=== PATIENT | female | born 1995 | race American Indian/Alaskan Native ===

== ENCOUNTER 2017-03-11 22:21 | Emergency (ER) | payer SELFPAY ==
[2017-03-11 22:54] VITALS: BP 146/95
--- NOTE | 2017-03-12 02:40 | Emergency Department Report ---
Minor Respiratory - HPI Chief Complaint: Upper Respiratory Infection Stated Complaint: FLU SYMPTOMS,BACK PAIN Time Seen by Provider: 03/12/17 01:49 Duration: Today Pain Location: Other (generalized body aches) Severity: moderate Minor Respiratory: Yes Rhinorrhea, Yes Sore Throat, Yes Able to Tolerate Fluids , Yes Cough, Yes Sick Contacts, Yes Fever, No Ear Pain, No Hemoptysis, No Chest Pain, No Shortness of Breath Other History: This is a 21 y.o. female presents with sore throat, cough, and body aches since this morning. Reports symptoms starting around 0600 today. She took aleve once with minimal improvement. Reports muclse aches didn't resolve and she can barely get out of bed. Denies chest pain, SOB, nausea, vomiting, wheezing, congestion, and rhinorrhea. ED Review of Systems ROS: Stated complaint: FLU SYMPTOMS,BACK PAIN Other details as noted in HPI Constitutional: see HPI, chills, fever, malaise. denies: diaphoresis, weakness ENT: denies: ear pain, throat pain, dental pain, hearing loss, epistaxis, congestion Respiratory: cough. denies: orthopnea, shortness of breath, SOB with exertion, SOB at rest, stridor, wheezing Cardiovascular: denies: chest pain, palpitations Gastrointestinal: denies: abdominal pain, nausea, diarrhea Musculoskeletal: myalgia (generalized body aches) Neurological: denies: headache, weakness, paresthesias ED Past Medical Hx - Past Medical History Hx Hypertension: Yes Hx Diabetes: Yes - Surgical History Additional Surgical History: chin, leg - Social History Smoking Status: Never Smoker Substance Use Type: Alcohol - Medications Home Medications: Home Medications Medication Instructions Recorded Confirmed Last Taken Type Benzonatate 200 mg PO TID PRN #30 capsule 03/12/17 Unknown Rx Fluticasone [Flonase] 1 spray NS QDAY #1 bottle 03/12/17 Unknown Rx Minor Respiratory Exam - Exam General: Vital signs noted. No distress. Alert and acting appropriately. HEENT: Yes Pharyngeal Erythema, Yes Moist Mucous Membranes, No Pharyngeal Exudates, No Rhinorrhea, No Conjuctival Injection, No Frontal Tenderness, No Maxillary Tenderness Ear: Neither TM Bulge, Neither TM Erythema, Neither EAC Pain, Neither EAC Discharge Neck: Yes Supple, No Adenopathy Lungs: Yes Good Air Exchange, Yes Cough, No Wheezes, No Ronchi, No Stridor, No Labored Respirations, No Retractions, No Use of Accessory Muscles, No Other Abnormal Lung Sounds Heart: Yes Regular, No Murmur Abdomen: Yes Normal Bowel Sounds, No Tenderness, No Peritoneal Signs Skin: No Rash, No Edema Neurologic: Alert and oriented, no deficits. Musculoskeletal: Unremarkable. ED Course Vital Signs 03/11/17 22:52 Temperature 99.1 F Pulse Rate 104 H Respiratory 18 Rate Blood Pressure 146/95 O2 Sat by Pulse 98 Oximetry ED Medical Decision Making - Medical Decision Making This is a 21 y.o. female presents with fever, cough, and body aches that started around 0600 today. She took advil and still feel pain everywhere and very lethargic. Negative influenza swab Discharged home with flonase, and benzonatate. Increase fluids, rest, and good hygiene. Follow up with PCP. Discussed when to return to ER. Critical care attestation.: If time is entered above; I have spent that time in minutes in the direct care of this critically ill patient, excluding procedure time. ED Disposition Clinical Impression: Viral syndrome URI (upper respiratory infection) Qualifiers: URI type: acute nasopharyngitis (common cold) Qualified Code(s): J00 - Acute nasopharyngitis [common cold] Disposition: - TO HOME OR SELFCARE Is pt being admited?: No Does the pt Need Aspirin: No Condition: Stable Instructions: Upper Respiratory Infection (ED), Viral Syndrome (ED), Cold Symptoms (ED) Additional Instructions: Increase fluid intake. Wash hands frequently to decrease the spread of infection. Take tylenol or ibuprofen to control fever. Follow up with Primary Care Provider if symptoms are not improving. Return to ER if chest pain, fever, abdominal pain, SOB, wheezing, or difficulty breathing. Prescriptions: Benzonatate 200 mg PO TID PRN #30 capsule PRN Reason: Pain Fluticasone [Flonase] 1 spray NS QDAY #1 bottle Referrals: [facility] [Outside] - 3-5 Days [facility] [Outside] - 3-5 Days [facility] [Outside] - 3-5 Days Time of Disposition: 03:16 Print Language: GREEK
[2017-03-12] MEDS ORDERED: TYLENOL ONE (03:29)
[2017-03-12] MEDS ORDERED: TYLENOL PO ONE (03:41)
== END 2017-03-12 03:43 | disposition home or self-care (01) ==
LOC: ED 22:21
DX: B34.9 Viral infection, unspecified (principal); J06.9 Acute upper respiratory infection, unspecified; I10 Essential (primary) hypertension; E11.9 Type 2 diabetes mellitus without complications
CPT/HCPCS: 87400; 99282

== ENCOUNTER 2019-08-23 08:16 | Emergency (ER) | payer SELFPAY ==
[2019-08-23 09:10] LABS: Basophils # (Auto) 0.1 K/mm3 (0.0-0.1); Eosinophils # (Auto) 0.1 K/mm3 (0.0-0.4); Eosinophils % (Auto) 1.7 % (0.0-4.3); Hematocrit 29.2 % (30.3-42.9); Hemoglobin 10.1 gm/dl (10.1-14.3); Lymphocytes % (Auto) 39.4 % (13.4-35.0); Mean Corpuscular HGB Conc 35 % (30-34); Mean Corpuscular Volume 83 fl (79-97); Monocytes # (Auto) 0.5 K/mm3 (0.0-0.8); Monocytes % (Auto) 6.1 % (0.0-7.3); Platelet Count 278 K/mm3 (140-440); Red Blood Count 3.52 M/mm3 (3.65-5.03); Red Cell Distribution Width 13.2 % (13.2-15.2)
--- NOTE | 2019-08-23 10:41 | Emergency Department Report ---
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 Patient describes the anterior chest pain as a tightness that lasted for 1 to 2 hours prior to resolving. She denies associate shortness of breath, nausea, vomiting, or diaphoresis. Patient states she has been taking an [id number] sleeping aid. She took a dose last night and then took another dose this morning 30 minutes to the onset of chest pain. This past Monday through (up till yesterday) and the vomiting has since resolved. Patient denies cough, fever, history of PE/DVT, calf tenderness, or leg edema. She is compliant with her medications will last BP dose this a.m. She did not take her insulin this morning because she has not had anything to eat yet. Patient endorses frequent loose stools today - Related Data Previous Rx's Medication Instructions Recorded Last Taken Type Benzonatate 200 mg PO TID PRN #30 capsule 03/12/17 Unknown Rx Fluticasone [Flonase] 1 spray NS QDAY #1 bottle 03/12/17 Unknown Rx Allergies Allergy/AdvReac Type Severity Reaction Status Date / Time rangel Allergy Itching Verified 03/12/17 03:29 Heart Score - HEART Score History: Moderately suspicious EKG: Normal Age: < 45 Risk factors: > 3 risk factors or hx of atherosclerotic disease Troponin: 1-3x normal limit HEART Score: 4 ED Review of Systems ROS: Stated complaint: CP Other details as noted in HPI ED Past Medical Hx - Past Medical History Previous Medical History?: Yes Hx Hypertension: Yes Hx Diabetes: Yes Additional medical history: BLIND - Surgical History Past Surgical History?: Yes Additional Surgical History: chin, leg. RIGHT EYE SURGERY - Social History Smoking Status: Never Smoker Substance Use Type: None - Medications Home Medications: Home Medications Medication Instructions Recorded Confirmed Last Taken Type Benzonatate 200 mg PO TID PRN #30 capsule 03/12/17 Unknown Rx Fluticasone [Flonase] 1 spray NS QDAY #1 bottle 03/12/17 Unknown Rx ED Physical Exam - General Limitations: No Limitations - Other Other exam information: General: No acute distress Head: Atraumatic Eyes: normal appearance ENT: Moist mucous membranes Neck: Normal appearance, no midline tenderness Chest: Clear to auscultation bilaterally, chest wall nontender CV: Mild tachycardia Abdomen: Soft, normal bowel sounds, nontender, nondistended, no rebound or guarding Back: Normal inspection Extremity: Normal inspection, full range of motion, no calf tenderness or leg edema Neuro: Alert O x 3, no facial asymmetry, speech clear, no gross motor sensory deficit Psych: Appropriate behavior Skin: No rash ED Course Vital Signs 08/23/19 08/23/19 08/23/19 08:18 11:18 11:45 Temperature 98.1 F Pulse Rate 111 H 111 H 99 H Respiratory 18 18 19 Rate Blood Pressure 181/115 194/131 O2 Sat by Pulse 100 100 Oximetry 08/23/19 08/23/19 08/23/19 12:00 12:31 12:45 Temperature Pulse Rate 99 H 103 H 107 H Respiratory 18 19 18 Rate Blood Pressure 209/125 218/122 178/97 O2 Sat by Pulse 100 96 98 Oximetry 08/23/19 08/23/19 08/23/19 13:00 13:30 13:45 Temperature Pulse Rate 101 H 102 H 100 H Respiratory 11 L 20 22 Rate Blood Pressure 191/127 204/133 218/127 O2 Sat by Pulse 100 99 Oximetry 08/23/19 08/23/19 08/23/19 14:00 14:15 14:30 Temperature Pulse Rate 104 H 99 H 103 H Respiratory 19 19 21 Rate Blood Pressure 209/133 198/130 203/134 O2 Sat by Pulse 100 100 100 Oximetry 08/23/19 08/23/19 08/23/19 14:31 14:45 15:00 Temperature Pulse Rate 104 H 96 H 94 H Respiratory 16 18 Rate Blood Pressure 203/134 191/116 206/119 O2 Sat by Pulse 99 Oximetry - Reevaluation(s) Reevaluation #1: 08/23/19 14:58 I was just informed that nuclear med is not here today because today is an official holiday and therefore needs to be called in pt will be admitted to hospitalist service with vq pending. - EJ/Peripheral Line Neck R Time Out Performed: Yes Indications: nurses unable to establis Skin Cleansed in Sterile Fashion: Yes Size: 20 Dressing Placed: Tegaderm, tape Patient Tolerated Procedure: well, no complications GOPAL score - Gopal Score Age > 65: (0) No Aspirin use within the Past 7 Days: (0) No 3 or more CAD Risk Factors: (1) Yes 2 or more Angina events in past 24 hrs: (1) Yes Known CAD with more than 50% Stenosis: (0) No Elevated Cardiac Markers: (0) No ST Deviation Greater than 0.5mm: (0) No GOPAL Score: 2 ED Medical Decision Making - Lab Data Result diagrams: 08/23/19 08:45 08/23/19 08:45 Lab Results 08/23/19 08/23/19 08/23/19 Range/Units 08:45 08:45 08:45 WBC 7.7 (4.5-11.0) K/mm3 RBC 3.52 L (3.65-5.03) M/mm3 Hgb 10.1 (10.1-14.3) gm/dl Hct 29.2 L (30.3-42.9) % MCV 83 (79-97) fl MCH 29 (28-32) pg MCHC 35 H (30-34) % RDW 13.2 (13.2-15.2) % Plt Count 278 (140-440) K/mm3 Lymph % (Auto) 39.4 H (13.4-35.0) % [place] % (Auto) 6.1 (0.0-7.3) % Eos % (Auto) 1.7 (0.0-4.3) % Baso % (Auto) 1.0 (0.0-1.8) % Lymph # 3.0 (1.2-5.4) K/mm3 [place] # 0.5 (0.0-0.8) K/mm3 Eos # 0.1 (0.0-0.4) K/mm3 Baso # 0.1 (0.0-0.1) K/mm3 Seg Neutrophils % 51.8 (40.0-70.0) % Seg Neutrophils # 4.0 (1.8-7.7) K/mm3 D-Dimer (0-234) ng/mlDDU Sodium 135 L (137-145) mmol/L Potassium 4.3 (3.6-5.0) mmol/L Chloride 103.6 (98-107) mmol/L Carbon Dioxide 19 L (22-30) mmol/L Anion Gap 17 mmol/L BUN 44 H (7-17) mg/dL Creatinine 4.1 H (0.7-1.2) mg/dL Estimated GFR 16 ml/min BUN/Creatinine Ratio 11 % Glucose 221 H (65-100) mg/dL Calcium 8.6 (8.4-10.2) mg/dL Troponin T (0.00-0.029) ng/mL Triglycerides (2-149) mg/dL Cholesterol (50-199) mg/dL LDL Cholesterol Direct HDL Cholesterol (40-59) mg/dL Cholesterol/HDL Ratio % TSH (0.270-4.200) mlU/mL Free T4 (0.76-1.46) ng/dL HCG, Qual Negative (Negative) 08/23/19 08/23/19 08/23/19 Range/Units 11:33 11:33 11:33 WBC (4.5-11.0) K/mm3 RBC (3.65-5.03) M/mm3 Hgb (10.1-14.3) gm/dl Hct (30.3-42.9) % MCV (79-97) fl MCH (28-32) pg MCHC (30-34) % RDW (13.2-15.2) % Plt Count (140-440) K/mm3 Lymph % (Auto) (13.4-35.0) % [place] % (Auto) (0.0-7.3) % Eos % (Auto) (0.0-4.3) % Baso % (Auto) (0.0-1.8) % Lymph # (1.2-5.4) K/mm3 [place] # (0.0-0.8) K/mm3 Eos # (0.0-0.4) K/mm3 Baso # (0.0-0.1) K/mm3 Seg Neutrophils % (40.0-70.0) % Seg Neutrophils # (1.8-7.7) K/mm3 D-Dimer 580.84 H (0-234) ng/mlDDU Sodium (137-145) mmol/L Potassium (3.6-5.0) mmol/L Chloride (98-107) mmol/L Carbon Dioxide (22-30) mmol/L Anion Gap mmol/L BUN (7-17) mg/dL Creatinine (0.7-1.2) mg/dL Estimated GFR ml/min BUN/Creatinine Ratio % Glucose (65-100) mg/dL Calcium (8.4-10.2) mg/dL Troponin T 0.054 H (0.00-0.029) ng/mL Triglycerides 434 H (2-149) mg/dL Cholesterol 331 H (50-199) mg/dL LDL Cholesterol Direct TNR HDL Cholesterol 34 L (40-59) mg/dL Cholesterol/HDL Ratio 9.73 % TSH 8.050 H (0.270-4.200) mlU/mL Free T4 0.99 (0.76-1.46) ng/dL HCG, Qual (Negative) - EKG Data -: EKG Interpreted by Pr EKG shows normal: sinus rhythm, ST-T waves (no stemi) Rate: tachycardia (109) - Radiology Data Radiology results: report reviewed CHEST 1 VIEW, 08/23/2019 10:10 AM CLINICAL INFORMATION/INDICATION: Chest pain COMPARISON: None FINDINGS: SUPPORT DEVICES: None. HEART: The cardiac silhouette is normal in size. LUNGS/PLEURA: The lungs are clear of focal airspace disease or significant pleural effusion. ADDITIONAL FINDINGS: No additional acute findings. IMPRESSION: 1. No evidence of acute cardiopulmonary process - Medical Decision Making Patient will be admitted for uncontrolled hypertension and cardiac work-up for multiple cardiac risk factors. Patient also has acute renal failure and denies previous history. Patient required labetalol push and IV to attempt to improve blood pressure. Mild elevation initial troponin which also could be due to renal failure. No ischemic findings on EKG. D-dimer elevated with V/Q pending at disposition. Patient will be admitted to the hospital service for further treatment and management Critical Care Time: No Critical care attestation.: If time is entered above; I have spent that time in minutes in the direct care of this critically ill patient, excluding procedure time. ED Disposition Clinical Impression: Chest pain, Uncontrolled hypertension, Elevated d-dimer, Insulin dependent diabetes mellitus, Elevated cholesterol, Blind, Wheelchair dependence, ARF (acute renal failure) Disposition: OP ADMIT IP TO THIS HOSP Is pt being admited?: Yes Condition: Stable Time of Disposition: 15:01 (Dr Loya/hosp)
--- NOTE | 2019-08-23 11:32 | XRay Report ---
CHEST 1 VIEW, 08/23/2019 10:10 AM CLINICAL INFORMATION/INDICATION: Chest pain COMPARISON: None FINDINGS: SUPPORT DEVICES: None. HEART: The cardiac silhouette is normal in size. LUNGS/PLEURA: The lungs are clear of focal airspace disease or significant pleural effusion. ADDITIONAL FINDINGS: No additional acute findings. IMPRESSION: 1. No evidence of acute cardiopulmonary process. Signer Name: Tila Santacruz MD Signed: 08/23/2019 11:28 AM Workstation Name: [id number]
[2019-08-23 12:15] LABS: Free T4 (Free Thyroxine) 0.99 ng/dL (0.76-1.46)
[2019-08-23 12:25] LABS: Chol/HDL Ratio 9.73 %; HDL Cholesterol 34 mg/dL (40-59); LDL Cholesterol,Direct TNR mg/dL (50-130)
[2019-08-23 12:53] LABS: Calcium 8.6 mg/dL (8.4-10.2)
[2019-08-23] MEDS ORDERED: ASPIRIN 325 MG TAB PO ONE (14:27)
--- NOTE | 2019-08-23 16:06 | Nuclear Medicine Report ---
NUCLEAR MEDICINE PERFUSION LUNG SCAN INDICATION / CLINICAL INFORMATION: elevated ddimer, chest pain. TECHNIQUE: 4.8 mCi of Tc-99m MAA were given by IV. COMPARISON: Chest radiograph dated 08/23/2019. FINDINGS: PERFUSION: No significant perfusion defects. ADDITIONAL FINDINGS: None. IMPRESSION: 1. Low probability for pulmonary embolism. Signer Name: Eriberto Crump MD Signed: 08/23/2019 4:02 PM Workstation Name: [id number]
[2019-08-23] MEDS ORDERED: SODIUM CHLORIDE 0.45% 1000 ML 1,000 ML with SODIUM BICARBONATE 75 MEQ IV SCH (17:00)
--- NOTE | 2019-08-23 18:56 | Ultrasound Report ---
ULTRASOUND RENAL INDICATION: renal failure. COMPARISON: No relevant prior imaging study available. FINDINGS: RIGHT KIDNEY: Size: 9.8 cm. Echogenicity: Increased echogenicity. Cortical thickness: Normal. Stones: None. Hydronephrosis: None. Cyst or mass: None. LEFT KIDNEY: Size: 8.5 cm. Echogenicity: Increased. Cortical thickness: Normal. Stones: None. Hydronephrosis: None. Cyst or mass: None. Urinary Bladder: No significant abnormality. Free Fluid: None. Additional Findings: None. IMPRESSION 1. Bilateral increased renal cortical echogenicity suggesting medical renal disease. No hydronephrosi s. Signer Name: Eriberto Crump MD Signed: 08/23/2019 6:52 PM Workstation Name: [id number]
[2019-08-23 21:34] VITALS: BP 162/91
== END 2019-08-23 21:36 | disposition admitted as inpatient to this hospital (09) ==
LOC: ED 08:16 → UNDOADMOB 15:02 → 4A 15:02
DX: R07.9 Chest pain, unspecified (principal); H54.7 Unspecified visual loss; I10 Essential (primary) hypertension; E11.9 Type 2 diabetes mellitus without complications; E78.00 Pure hypercholesterolemia, unspecified; R79.89 Other specified abnormal findings of blood chemistry; N17.9 Acute kidney failure, unspecified; Z99.3 Dependence on wheelchair; Z79.899 Other long term (current) drug therapy; Z98.890 Other specified postprocedural states; Z91.018 Allergy to other foods
CPT/HCPCS: 36415; 36569; 71045; 76770; 78580; 80048; 80061; 83520; 83615; 84439; 84443; 84484; 84703; 85025; 85379; 86021; 86038; 86160; 86689; 86706; 86803; 96374; 96375; 99285; A9540